=== PATIENT | male | born 1945 | race Caucasian/White ===

== ENCOUNTER → 2023-11-02 10:32 | Outpatient (REF) | payer OTHER, SELFPAY | LOC: HWRAD 10:32 | PROVIDERS: ATTENDING PHYSICIAN Nurse Practitioner Adult Health; FAMILY PHYSICIAN Family Medicine | DX: M47.816 Spondylosis without myelopathy or radiculopathy, lumbar region (principal); M54.16 Radiculopathy, lumbar region | CPT/HCPCS: 72100 ==

== ENCOUNTER 2024-11-06 15:06 | Emergency (ER) | payer OTHER, MEDICARE, SELFPAY ==
[2024-11-06 15:07] VITALS: BP 185/85
[2024-11-06 15:13] VITALS: BMI 18.1
--- NOTE | 2024-11-06 15:31 | ED.GENMED ---
History of Present Illness
General
Chief Complaint: Breathing Problem
Source: patient
Exam Limitations: none
Time Seen by Provider: 11/06/24 15:21
History of Present Illness
History of Present Illness:
78-year-old male complaining of increased shortness of breath hours ago. Daughter was cleaning the house. He felt like he was rushed to eat possibly ate too much and drank too much of his shake. Also admits to 4-5 beers. Increased shortness of
breath as he got anxious over this. Initially he question the small aspiration. Currently feels better. At baseline respiratory status [place]
Past History
Past History
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
ED Past Surgical History: Orthopedic
Patient has exhibited threatening behavior?: No
PSI?: No
Social History
Tobacco: Smoker
Alcohol: Daily
Drug: None
Personal: Single
Review of Systems
Review of Systems
All Other Systems: Not applicable
Constitutional: Denies fever
Cardiac: Denies chest pain or syncope
Phy Exam
Physical Exam
Physical Exam:
GENERAL: Alert and oriented in no apparent distress. All of her stated age. Mildly cachectic
EYE: Left eye closed from old trauma
NECK: Supple, no significant adenopathy.
ENT: Pharynx without erythema
CARDIAC: Regular rate and rhythm without any obvious murmurs.
LUNGS: No respiratory distress. Room air pulse ox 96 to 98%. Speaking normally. Slightly raspy voice which is baseline. Very mild end expiratory wheeze at times.
ABDOMEN: Soft, without focal tenderness or distention
NEUROLOGICAL: Alert and oriented , grossly non-focal
SKIN: Warm and dry, no rash or lesion, no discoloration, skin intact.
MUSCULOSKELETAL: No edema,no deformity.Good color
PSYCH: Normal and appropriate interaction.
Scores
Heart Failure Risk
Heart Failure Risk Score: Not Applicable
Course
Orders/Labs/Results
Orders:
Orders
11/06/24 15:14
Electrocardiogram (*1) Urgent
Reason for Study: Shortness of Breath
CR Chest - 2 Views Urgent
Comment:
Reason For Exam: shortness of breath
11/06/24 15:15
EKG- Treatment ONCE
COVID-19 Antigen Urgent
Source: Nasal Swab
Complete Blood Count/With Diff Urgent
Comprehensive Metabolic Panel Urgent
Influenza A+B Rapid Molecular Urgent
DENISSE Source: Nasal Swab
Specimen Description:
11/06/24 15:31
Dexamethasone Sod Phosphate [Decadron] 6 mg IV NOW STA
Ipratropium/Albuterol Sulfate [Duoneb] 3 ml INH R NOW ONE
11/06/24 17:09
Doxycycline [Vibramycin] 100 mg PO NOW STA
Abnormal Lab Results
11/06/24
15:15
RBC 3.99 L 10^6/uL
(4.70-6.10)
Hct 36.0 L %
(39.0-52.0)
MCH 33.8 H pg
(27.0-31.0)
MCHC 37.5 H g/dL
(33.0-37.0)
Sodium 128 L mmol/L
(135-145)
Chloride 89 L mmol/L
(98-107)
Creatinine 0.6 L mg/dL
(0.7-1.3)
11/06/24 15:15
11/06/24 15:15
Vital Signs
Initial and Last Documented VS:
Initial Vital Signs
Temp Pulse Resp BP Pulse Ox
97.3 F 66 19 185/85 96
11/06/24 15:07 11/06/24 15:07 11/06/24 15:07 11/06/24 15:07 11/06/24 15:07
Last Documented Vital Signs
Temp Pulse Resp BP Pulse Ox
97.3 F 68 22 185/85 94
11/06/24 15:07 11/06/24 18:00 11/06/24 18:00 11/06/24 15:07 11/06/24 17:45
MDM/Problems Addressed
Differential Diagnosis Includes:
Patient with transiently increased shortness of breath now at baseline. Very minimal end expiratory wheeze. Will check chest x-ray. Labs pending. Clinically not cardiac. DuoNeb steroids.
*Pulse Oximetry
Patient hypoxic: no
*EKG
Interpreted by ED Provider?: Yes
Interpretation: abnormal
Comparison EKG: changes noted
Heart Rate: 60
Rate: normal
Rhythm: sinus
[place]: left axis deviation
Interval: normal interval
QRS Pattern: right bundle branch block
Ischemia: non-specific ST changes
*Barrel [place] Interpretation
Rate: normal
Interpretation: normal
Heart Rate: 65
Rhythm: sinus
*Critical Care Note
Total Time (30-74mins, 75-104mins- exclusive of procedures): Not Applicable
Data Reviewed
Review of Other/Old Records Reveals: Labs, Records, Radiology Studies and Testing
Update Note
Update Note:
Medically stable and nontoxic. No distress. Doubt true pneumonia but will cover with doxycycline. Mild hyponatremia is chronic. Will recommend repeat labs in 3 to 4 days. Patient offered help and encouraged to get help for his alcohol issue.
He refuses help at this time
ED Attending Note
-
Portions of this chart may have been created with voice recognition software.� Occasional wrong word or��sound alike� substitutions may have occurred due to the inherent limitations of voice recognition software.
Discharge Plan
Departure
Patient Disposition: Home (Routine Discharge)
Date of Disposition: 11/06/24
Time of Disposition: 17:53
Patient with high blood pressure during this ER visit?: Yes
Discharge Problem:
Dyspnea/COPD, Mild hyponatremia, History of EtOH use
Instructions: Chronic obstructive pulmonary disease (COPD), Shortness of Breath (Dyspnea) (DC), Hyponatremia, BLOOD PRESSURE
Prescriptions:
New
doxycycline hyclate 100 mg capsule
100 mg PO BID 10 Days Qty: 20 0RF
prednisone 10 mg tablet
10 mg PO DAILY Qty: 20 0RF
Rx Instructions:
4 tablets day 1. Then 1 less tablet every other day until done
No Action
losartan [Cozaar] 100 MG tablet
100 mg PO DAILY
sertraline 50 MG tablet
50 mg PO DAILY Qty: 30 0RF
multivitamin [TAB A CALEB] Tablet
1 tab PO DAILY
carvedilol 12.5 mg tablet
6.25 mg PO BID
melatonin 3 mg Tablet
6 - 12 mg PO HS
fluticasone propion-salmeterol [Advair Diskus] 500-50 mcg/dose Blister With Device
1 inh INHALATION BID
albuterol sulfate 90 mcg/actuation Hfa Aerosol Inhaler
2 puff INHALATION PRN PRN (Reason: SOB, Wheezes)
amlodipine 5 mg Tablet
5 mg PO DAILY
aspirin 81 mg Tablet,Delayed Release (Dr/Ec)
81 mg PO DAILY
Referrals:
NONE,* [Family Provider] -
Activity Restrictions/Additional Instructions:
Recommend getting a repeat sodium level in 3 to 4 days. If your primary doc cannot order this you can always return to the ER for reevaluation
Interventions
Interventions:
*Risk Screen - Suicide Last Done: 11/06/24 15:12
*General Assessment Last Done: 11/06/24 15:12
*Neglect/Abuse Screening Last Done: 11/06/24 15:12
*ED- Fall Risk Assessment Last Done: 11/06/24 15:12
*ED COVID-19 Vaccine History Last Done: 11/06/24 15:12
*Nursing Disposition Last Done: 11/06/24 18:16
ED- Cardiac Assessment Last Done: 11/06/24 15:43
ED- Pulmonary Assessment Last Done: 11/06/24 15:43
Discharge Date and Time
Discharge Date/Time: 11/06/24 18:18
Print Language: CHADIAN
[2024-11-06 15:39] LABS: % Basophils 1.2 % (0-2); % Eosinophils 5.9 % (0-6); % Immature Granulocytes 0.3 % (0-0.5); % Monocytes 7.7 % (1.7-9.3); % Neutrophils 61.9 % (42.2-75.2); Absolute Basophils 0.1 10^3/uL (0-0.2); Absolute Eosinophils 0.4 10^3/uL (0-0.7); Absolute Lymphocytes 1.6 10^3/uL (1.2-3.4); Absolute Monocytes 0.5 10^3/uL (0.1-0.6); Absolute Neutrophils 4.2 10^3/uL (1.4-6.5); Hemoglobin 13.5 g/dL (13.0-18.0); Mean Corp Hgb Conc. 37.5 g/dL (33.0-37.0); Mean Corpuscular Hgb 33.8 pg (27.0-31.0); Mean Corpuscular Volume 90.2 fL (80.0-94.0); Mean Platelet Volume 8.1 fL (7.4-10.4); Nucleated Red Blood Cells % 0 % (-); Platelet Count 285 10^3/uL (130-400); Red Blood Cell Count 3.99 10^6/uL (4.70-6.10); Red Cell Dist. Width 12.2 % (11.5-14.5); White Blood Cell Count 6.8 10^3/uL (4.8-10.8)
[2024-11-06 15:45] LABS: ALT (SGPT) 16 U/L (0-50); AST (SGOT) 32 U/L (17-59); Albumin 4.5 g/dl (3.5-5.0); Alkaline Phosphatase 88 U/L (38-126); Blood Urea Nitrogen 11 mg/dl (9-20); Calcium 9.2 mg/dl (8.4-10.2); Carbon Dioxide 26 mmol/L (22-30); Chloride 89 mmol/L (98-107); Estimated Creatinine Clearance 91 ml/min; Glucose 94 mg/dl (70-99); Potassium 4.2 mmol/L (3.5-5.1); Sodium 128 mmol/L (135-145); Total Bilirubin 0.6 mg/dl (0.2-1.3); eGFR > 60.00
[2024-11-06 15:50] LABS: COVID-19 Antigen Negative (Negative)
[2024-11-06] MEDS: DUONEB 3 ML INH (15:51)
[2024-11-06] MEDS: DECADRON 6 MG IV (15:51)
[2024-11-06] MEDS: VIBRAMYCIN 100 MG PO (17:16)
== END 2024-11-06 18:18 | disposition home or self-care (01) ==
LOC: EMR 15:06
PROVIDERS: Student in an Organized Health Care Education/Training Program; EMERGENCY PHYSICIAN Emergency Medicine
DX: J44.9 Chronic obstructive pulmonary disease, unspecified (principal); E87.1 Hypo-osmolality and hyponatremia; R06.09 Other forms of dyspnea; F10.90 Alcohol use, unspecified, uncomplicated; F17.200 Nicotine dependence, unspecified, uncomplicated; Z11.52 Encounter for screening for COVID-19; I10 Essential (primary) hypertension
CPT/HCPCS: 99285; 96374; 94640; 71046; 80053; 85025; 87502; 87811; 93005